=== PATIENT | male | born 1995 | race Two or more races ===

== ENCOUNTER 2024-07-16 01:16 | Emergency (ER) | payer MEDICAID, SELFPAY ==
[2024-07-16 01:19] VITALS: BMI 27.8
--- NOTE | 2024-07-16 01:27 | EDNOTE_ITS ---
ED SOB =RME/HPI General Chief Complaint: Shortness of Breath/Dyspnea Stated Complaint: HIGH BP, SOB, HEADACHE Time Seen by Provider: 07/16/24 01:35 Arrival date/time: 07/16/24 01:16 RME / HPI RME / HPI Narrative: This section includes all my notes and documentations, including HPI, PE, and ED course. Nicolas Renner MD HPI: 29 y/o male presents to ED c/o intermittent, on and off shortness of breath x 1 week. Other symptoms can include intense fear, pounding and racing heart, sweating, chills, shaking, chest pain, stomach pain, nausea, numbness and tingling in the hands and feet and face, confusion, hot flashes, and feeling faint. No other complaints. Physical Exam: General: Alert and oriented. Appears anxious. Eyes: Conjunctivae and lids clear. ENT: No nasal congestion. Neck: Supple. Heart: RRR. Lungs: No respiratory distress. Good air movement. No rhonchi, wheezing, rales. Abdomen: Soft and nontender. Normal bowel sounds. No distension. No rebound or guarding. Back: No CVA tenderness. Skin: Warm and dry. Neuro: Alert and oriented X 3. I reviewed all diagnostic test results. My interpretation of the EKG: NSR (82 bpm) with no ST-T changes. My interpretation of the chest x-ray is no acute findings, official radiology report is pending. Blood tests unremarkable, including negative troponin/D-dimer/BNP. At this point, diagnoses include anxiety. Treatment here included Xanax. Significant improvement noted. Recommended more outpatient workup. Based on my best medical judgment, made decision no further evaluation or treatment indicated at this time. Patient understands and agrees to the discharge instructions customized and printed, see below. Discharge instructions from Dr. Renner: 1. After extensive evaluation, there is no life-threatening condition.? Such as heart attack or pulmonary embolism (blood clots in your lungs) or pneumothorax (collapsed lung). 2. Your symptoms may be due to underlying stress or anxiety or nerves.? This is fairly common. 3. Take Xanax as needed.? Whether this helps or not will be valuable information to your private doctors. 4. See a private doctor on 07/18/2024. To make sure there is no serious underlying heart condition, ask to help you get more tests for your heart that cannot be done here in the ER.? Such as Holter Monitor (cardiac monitoring at home from a day to even a month), heart stress test (on treadmill or with medication), echocardiogram (imaging of your heart structures), heart catherization (checking for blockages in your heart arteries), and a referral to see a [employer]. Ask for lung specialist referral. 5. Seek immediate medical care with worsening or with any concerns.?? Nicolas Renner MD Related Data Previous Rx's ?Medication ?Instructions ?Recorded alprazolam 0.5 mg tablet (Xanax) 0.5 mg PO BID PRN anx iety #10 tabs 07/16/24 Allergies Allergy/AdvReac Type Severity Reaction Status Date / Time famotidine Allergy Swelling Verified 07/16/24 01:19 of Lip/Tongue/Throat Review of Systems Review of Systems Systems Reviewed: All systems reviewed, normal except as documented Past Medical History Social History SMOKING STATUS: Never smoker ED Exam Narrative Physical exam: Refer to HPI above Course Course Course Narrative: CXR is ordered for determining the etiology of shortness of breath. Quality Measures none Orders Category Date Time Status Bedside COVID-19 Antigen Test NOW Care 07/16/24 01:29 Completed Bedside Influenza A&B Antigen Test NOW Care 07/16/24 01:29 Completed EKG (ED ONLY) *Do not use* NOW Care 07/16/24 01:29 Completed EKG (ED Only) Stat Exams 07/16/24 01:29 Draft XR chest 1V portable Stat Exams 07/16/24 01:29 Taken BNP [B-Type Natriuretic Peptide] Stat Lab 07/16/24 01:40 Completed Bilirubin,Direct Stat Lab 07/16/24 01:40 Completed CBC Stat Lab 07/16/24 01:40 Completed CMP [Comprehensive Metabolic Panel] Stat Lab 07/16/24 01:40 Completed D-Dimer Stat Lab 07/16/24 01:40 Completed Free T4 (Free Thyroxine) Stat Lab 07/16/24 01:40 Completed Magnesium Stat Lab 07/16/24 01:40 Completed TSH [Thyroid Stimulating Hormone] Stat Lab 07/16/24 01:40 Completed Troponin I Stat Lab 07/16/24 01:40 Completed ALPRazoLAM [Xanax] Med 07/16/24 01:27 Discontinued 0.5 mg PO X1 ONE Vital Signs Vital signs: Vital Signs Temperature 98 F 07/16/24 01:50 Pulse Rate 84 07/16/24 01:50 Respiratory Rate 18 07/16/24 01:50 Blood Pressure 143/94 H 07/16/24 01:50 Pulse Oximetry (%) 97 07/16/24 01:50 Oxygen Delivery Method Room Air 07/16/24 01:50 Shortness of Breath / Dyspnea MDM Narrative MDM Narrative:: Scribe Attestation: I, Katy Dee, am scribing for and in the presence of Dr. Renner. Provider Notation: Although this document has been carefully reviewed, there may still be some phonetic and other typographical errors.? These errors are purely grammatical due to imperfections in the software program and should not be construed in any way to? compromise the substance of the patient's medical care during this visit. 29 y/o male presents to ED c/o intermittent, on and off shortness of breath x 1 week. No other complaints. Patient data External records reviewed:: [facility] previous records (No prior ED records available for review.) Clinical information provided by:: patient Social determinants that could affect healthcare access:: none Patient has the following chronic illnesses:: None reported How is presenting disease/condition affected by chronic disease/condition?: no chronic disease Evaluation data The following diagnostics were reviewed and interpreted by me:: lab results, radiology exam(s) and EKG tracing(s) (My interpretation of the EKG: NSR (82 bpm) with no ST-T changes. Nicolas Renner MD) Lab and/or radiology exams considered but not ordered:: None Interpretation Summary: I reviewed all diagnostic test results. My interpretation of the EKG: NSR (82 bpm) with no ST-T changes. My interpretation of the chest x-ray is no acute findings, official radiology report is pending. Blood tests unremarkable, including negative troponin/D-dimer/BNP. Medications / Prescriptions Medications or Prescriptions considered but not ordered:: None Medication administrations:: Medication Administration History Discontinued Medications Alprazolam (Alprazolam 0.25 Mg Tablet) 0.5 mg PO X1 ONE Stop: 07/16/24 01:28 Last Admin: 07/16/24 01:48 Dose: 0.5 mg Documented By: CVL Xanax Consultations Consultation(s) initiated? (list below): No Diagnosis Shortness of Breath Differential Diagnosis: acute exacerbation of chronic obstructive airways disease, congestive heart failure, community acquired pneumonia, asthma with exacerbation, pulmonary embolism and other (Anxiety Disorder, Panic Disorder, Asthma) Most likely diagnosis given after review of the tests above:: Anxiety Admission Indicated Admission indicated?: not indicated Explain why admission is indicated or not indicated:: With significant improvement, there was no indication for admission.? Admission Request Was there a request for admission?: No Disposition Plan Disposition Plan: Discharge Discharge Attestation Discharge Attestation: The patient and all family members were given an opportunity to ask questions and understood the discharge instructions. Discharge instructions specifically effects, indications for sooner follow up or return to the emergency department, and the expected course of current diagnosis. Patient condition: Stable Discharge Plan Plan Patient Disposition: HOME (Self Care) Prescriptions/Referrals Prescriptions/Med Rec: New alprazolam [Xanax] 0.5 mg tablet 0.5 mg PO BID PRN (Reason: anxiety) Qty: 10 0RF Problem List Clinical Impression: Shortness of breath Patient/Caregiver Discharge Instructions Discharge Activity: activity as tolerated Education Materials: ED Anxiety Reaction, ED Panic Attack Additional Instructions: Discharge instructions from Dr. Renner: 1. After extensive evaluation, there is no life-threatening condition.? Such as heart attack or pulmonary embolism (blood clots in your lungs) or pneumothorax (collapsed lung). 2. Your symptoms may be due to underlying stress or anxiety or nerves.? This is fairly common. 3. Take Xanax as needed.? Whether this helps or not will be valuable information to your private doctors. 4. See a private doctor on 07/18/2024. To make sure there is no serious underlying heart condition, ask to help you get more tests for your heart that cannot be done here in the ER.? Such as Holter Monitor (cardiac monitoring at home from a day to even a month), heart stress test (on treadmill or with medication), echocardiogram (imaging of your heart structures), heart catherization (checking for blockages in your heart arteries), and a referral to see a [employer]. Ask for lung specialist referral. 5. Seek immediate medical care with worsening or with any concerns.?? Print Language: Thai Stand Alone Forms: [facility] Award Info., Patient Portal Info Letter
--- NOTE | 2024-07-16 01:29 | XR_ITS ---
Examination: Upright PA chest single view TECHNIQUE: Upright PA chest single view Exam date and time: July 16, 2024, 0203 hours INDICATION: Shortness of beginning 3 days ago. FINDINGS: Normal heart size. Lungs are clear. The osseous structures are intact IMPRESSION: No active disease
--- NOTE | 2024-07-16 01:29 | EKG_ITS ---
[facility], [place] Test Date: 2024-07-16 Pat Name: MARGARITA IQBAL Department: Room: - Gender: Male [employer] Liaison: : 1995 Requested By: Nicolas Waller Order Number: [id number] Reading MD: Nicolas Waller Measurements Intervals [place] Rate: 82 P: 36 HI: 154 QRS: 23 QRSD: 88 T: 64 QT: 310 QTc: 363 Interpretive Statements SINUS RHYTHM No previous ECG available for comparison /store/S0/[id number].pdf
[2024-07-16] MEDS: ALPRazoLAM 0.25 MG TABLET 0.5 MG PO (01:48)
[2024-07-16 01:50] VITALS: BP 143/94; PULSE 84; RESP 18; TEMP 36.6; O2SAT 97
[2024-07-16 01:57] LABS: Basophils # (Auto) 0.1 Thou/mm3 (0.0-0.2); Basophils % (Auto) 1 % (0-2.5); Eosinophils # (Auto) 0.1 Thou/mm3 (0.0-0.5); Eosinophils % (Auto) 1 % (0-10); Hematocrit 42.4 % (41.0-53.0); Hemoglobin 15.7 g/dL (13.5-16.0); Immature Granulocytes % (Auto) 0 % (0-0); Immature Granulocytes Auto 0.05 Thou/mm3 (0.00-0.00); Lymphocytes # (Auto) 3.4 Thou/mm3 (1.0-4.8); Lymphocytes % (Auto) 29 % (10-50); Mean Corpuscular Hemoglobin 29.8 pg (25.0-35.0); Mean Corpuscular Volume 81 fL (80-100); Monocytes # (Auto) 0.7 Thou/mm3 (0.0-0.8); Monocytes % (Auto) 6 % (0-12); Neutrophils # (Auto) 7.3 Thou/mm3 (1.8-7.7); Neutrophils % (Auto) 63 % (37-80); Nucleated Red Blood Cell % 0 /100 WBC (0); Platelet Count 313 Thou/mm3 (140-440); RDW Standard Deviation 38.9 fL (35.1-43.9); Red Blood Count 5.27 Miln/mm3 (4.50-5.90); White Blood Count 11.6 Thou/mm3 (3.8-10.6)
[2024-07-16 02:16] LABS: D-Dimer < 250 ng/mL (<600)
[2024-07-16 02:18] LABS: B-Type Natriuretic Peptide < 20 pg/mL (0-100)
[2024-07-16 03:02] LABS: Alanine Aminotransferase 66 U/L (10-49); Albumin, Serum 5.1 gm/dL (3.5-5.0); Alkaline Phosphatase 82 U/L (46-116); Anion Gap 13 (7-16); Aspartate Amino Transferase 33 U/L (0-34); BUN/Creatinine Ratio 9 Ratio (12-20); Bilirubin,Direct 0.2 mg/dL (0.0-0.3); Bilirubin,Total 0.6 mg/dL (0.3-1.2); Blood Urea Nitrogen 8 mg/dL (9-23); Calcium 9.7 mg/dL (8.3-10.6); Calcium (Corrected) 9.7 mg/dL (8.5-10.1); Chloride 102 mMol/L (98-107); Creatinine (Component) 0.9 mg/dL (0.6-1.3); Estimated Creatinine Clearance 139.6 mL/min (>60); Free T4 (Free Thyroxine) 1.32 ng/dL (0.89-1.76); Globulin 2.5 gm/dL (2.3-3.5); Glucose 104 mg/dL (74-106); Magnesium 1.9 mg/dL (1.6-2.6); Osmolality,Calculated 279 (275-295); Potassium 4.2 mMol/L (3.4-5.1); Sodium 141 mMol/L (136-145); Thyroid Stimulating Hormone 2.71 uIU/mL (0.55-4.78); Total Protein 7.6 gm/dL (5.7-8.2); Troponin I < 0.002 ng/mL (0.0-0.045); eGFR > 60 See Note
[2024-07-16 03:31] VITALS: RESP 16
== END 2024-07-16 03:31 | disposition home or self-care (01) ==
LOC: SERX 03:35
PROVIDERS: Emergency Provider Emergency Medicine
DX: R06.02 Shortness of breath (principal)
CPT/HCPCS: 36415; 71045; 80053; 82248; 83735; 83880; 84439; 84443; 84484; 85025; 85379; 87400; 87811; 93005; 99283; A9270